=== PATIENT | male | born 1990 | race Caucasian/White ===

== ENCOUNTER 2018-08-16 09:33 | Inpatient (IN) | payer OTHER ==
[~2018-08-16] VITALS: Ht 175.3 cm; Wt 116.6 kg
--- NOTE | 2018-08-16 09:50 | NUR ---
PT TO ER BED 10, WAS REFFERED BY URGENT CARE FOR HIGH BLOOD SUGAR. PT IS C/O URINARY FREQUENCY AND BLURRING OF VISION X 2 WEEKS. STABLE VITALS. VSS. AWAITING MD TOWSNEND.
--- NOTE | 2018-08-16 10:08 | NUR ---
DR BOLAND AT BEDSIDE FOR EVAL.
--- NOTE | 2018-08-16 10:20 | NUR ---
IV LINE STARTED BLOOD DRAWN AND SENT TO LAB.
[2018-08-16 10:30] LABS: BASOPHILS # (AUTO) 0.1 /CMM (0.0-0.2); BASOPHILS % (AUTO) 1.5 % (0.0-2.0); EOSINOPHILS % (AUTO) 1.7 % (0.0-6.0); HEMATOCRIT 50 % (39-51); HEMOGLOBIN 17.5 g/dL (13.5-17.5); LYMPHOCYTES # (AUTO) 3.6 /CMM (0.8-4.8); LYMPHOCYTES % (AUTO) 46.6 % (20.0-44.0); MEAN CORPUSCULAR HGB CONC 35 g/dl (31.0-36.0); MEAN CORPUSCULAR VOLUME 87 fL (80-96); MONOCYTES # (AUTO) 0.6 /CMM (0.1-1.30); MONOCYTES % (AUTO) 7.8 % (2.0-12.0); NEUTROPHILS # (AUTO) 3.3 /CMM (1.8-8.9); NEUTROPHILS % (AUTO) 42.4 % (43.0-81.0); PLATELET COUNT (AUTO) 233 /CMM (150-450); WHITE BLOOD COUNT (AUTO) 7.7 K/uL (4.3-11.0)
[2018-08-16] MEDS ORDERED: ONDANSETRON HCL/PF 4 MG/2 ML VIAL IVP ONE (10:30)
[2018-08-16] MEDS ORDERED: IV NS 0.9% 1,000 ML BAG IV ONE (10:30)
[2018-08-16 10:35] LABS: CALCIUM, SERUM 8.9 mg/dL (8.5-10.1); CREATININE 1.4 mg/dL (0.6-1.3); POTASSIUM 4.1 mmol/L (3.5-5.1)
[2018-08-16 10:41] LABS: ALBUMIN 4.6 g/dL (3.4-5.0); BILIRUBIN,DIRECT 0.1 mg/dL (0.0-0.2); BILIRUBIN,TOTAL 0.8 mg/dL (0.2-1.0); TOTAL PROTEIN, SERUM 8.3 g/dL (6.4-8.2)
[2018-08-16 10:52] LABS: APPEARANCE,URINE Clear (CLEAR); BILIRUBIN,URINE SMALL (NEGATIVE); BLOOD, URINE Moderate Ery/uL (NEGATIVE); COLOR,URINE Yellow (YELLOW); KETONES,URINE >=160 (NEGATIVE); LEUKOCYTE ESTERASE ,URINE Negative (NEGATIVE); NITRITE, URINE Negative (NEGATIVE); PROTEIN,URINE 100 mg/dl (NEGATIVE); UGLUCOSE 500 MG/DL mg/dL (NEGATIVE); UROBILINOGEN,URINE 0.2 EU/dL (0.2)
[2018-08-16 11:06] LABS: BACTERIA,URINE None seen /HPF (None Seen); RBC,URINE 0-2 /HPF (0-2); WBC,URINE 0-2 /HPF (0-3)
[2018-08-16 11:11] LABS: SQUAMOUS EPITHELIAL CELL,UR Rare /HPF (None Seen)
--- NOTE | 2018-08-16 12:05 | NUR ---
CALLED HCP, SPOKE TO [facility] [phone]. WILL CALL BACK FOR TRANSFER INFO. PRIMARY NURSE AWARE.
--- NOTE | 2018-08-16 12:08 | NUR ---
BLOOD SUGAR RE CHECK 337. ERMD AWARE. DIABETIC TRAY PROVIDED.
--- NOTE | 2018-08-16 14:18 | NUR ---
CALLED HCP, SPOKE TO [facility] [phone]. WILL CALL BACK FOR TRANSFER INFO. PRIMARY NURSE AWARE.
--- NOTE | 2018-08-16 14:42 | NUR ---
CALL BACK FROM DR LINDO,[phone],TRYING TO TX PATIENT BUT REQUESTED IF PATIENT CAN HAVE MORE FLUID AND AN INSULIN,DR ANDERSON INFORMED AND AGGREED TO GIVE MORE FLUID BUT NOT INSULIN.
[2018-08-16] MEDS ORDERED: IV LR 1000 ML 1,000 ML IV ONE (15:00)
[2018-08-16 16:40] LABS: ABG OXYGEN SATURATION 19.3 % (92.0-98.5); ABG PCO2 48.4 mmHg (35.0-45.0); ABG PH 7.294 (7.350-7.450); ABG PO2 13.5 mmHg (75.0-100.0); COHb 0.4 % (0.5-1.5); MetHb 1.4 % (0.0-1.5); SITE, ABG LEFT ARM; VENT MODE, BG ROOM AIR
--- NOTE | 2018-08-16 18:47 | NUR ---
REPORT GIVEN TO JCARLOS IBARRA AT ICU. AWAITING TRANSFER TO FLOOR.
[2018-08-16] MEDS ORDERED: MAG HYDROX/AL HYDROX/SIMETH 30 ML UDC PO PRN (19:00)
[2018-08-16] MEDS ORDERED: MAGNESIUM HYDROXIDE 30 ML UDC PO PRN (19:00)
[2018-08-16] MEDS ORDERED: INSULIN REGULAR, HUMAN 100 UNIT in IV NS 0.9% 99 ML IV PRN ×2 (19:00)
[2018-08-16] MEDS ORDERED: ZOLPIDEM TARTRATE 5 MG TABLET PO PRN (19:00)
[2018-08-16] MEDS ORDERED: ACETAMINOPHEN 325 MG TABLET PO PRN (19:00)
[2018-08-16] MEDS ORDERED: Z GUARD REMEDY 2 OZ OINT TP PRN (19:00)
[2018-08-16] MEDS ORDERED: ONDANSETRON HCL/PF 4 MG/2 ML VIAL IVP PRN (19:00)
[2018-08-16] MEDS ORDERED: HYDROCODONE/APAP 5/325MG 1 EACH TABLET PO PRN (19:00)
[2018-08-16 19:24] LABS: CALCIUM, SERUM 8.4 mg/dL (8.5-10.1); CREATININE 1.2 mg/dL (0.6-1.3); POTASSIUM 3.8 mmol/L (3.5-5.1)
[2018-08-16 19:30] VITALS: BP 133/88
--- NOTE | 2018-08-16 19:30 | NUR ---
RECEIVED PT IN NO ACUTE DISTRESS IN [facility]. PT AMBULATED TO BED WITH A STEADY GAIT. PT IS A/O X 4 AND ABLE TO MAKE NEEDS KNOWN. PT IS ON RA AND TOLERATING WELL WITH O2 SAT @ 98%. PT NOT C/O ANY SOB, DIFFICULTY BREATHING OR PAIN AT THIS TIME. PT PLACED ON TELE WITH SR ON THE MONITOR. PT HAS LEFT AC 20G THAT IS CLEAN DRY INTACT AND PATENT WITH SALINE FLUSH. BED IN LOW LOCK POSITION WITH RIALS UP X 2 CALL LIGHT WITHIN REACH AND ALL SAFETY MEASURES ENSURED AND CARRIED OUT. WILL CONTINUE TO MONITOR.
[2018-08-16] MEDS: IV NS 0.9% 1,000 ML IV SCH (19:35)
[2018-08-16] MEDS: BLOOD SUGAR DIAGNOSTIC 1 EACH STRIP IN SCH ×4 (19:55→23:03)
[2018-08-16 20:00] VITALS: BP 134/76
[2018-08-16 21:00] VITALS: BP 138/81
[2018-08-16 22:00] VITALS: BP 138/79
[2018-08-16 23:00] VITALS: BP 128/56
[2018-08-17] VITALS (35 sets, daily range): BP systolic 111–157; BP diastolic 52–97
--- NOTE | 2018-08-17 | NUR ---
NOTIFIED DR JENKINS THAT PT POTASSIUM LEVEL IS 3.2 AND GIVEN ORDERS FOR 40 MEQ POTASSIUM ONE TIME. READBACK ORDERS PERFORMED AND CARRIED OUT.
[2018-08-17] MEDS: BLOOD SUGAR DIAGNOSTIC 1 EACH STRIP IN SCH ×14 (00:06→21:36)
[2018-08-17 00:35] LABS: CALCIUM, SERUM 8.1 mg/dL (8.5-10.1); CREATININE 1.2 mg/dL (0.6-1.3); POTASSIUM 3.2 mmol/L (3.5-5.1)
[2018-08-17] MEDS: IV NS 0.9% 1,000 ML IV SCH ×2 (01:55→10:11)
[2018-08-17] MEDS ORDERED: POTASSIUM CHLORIDE 20 MEQ TAB.PRT.SR PO ONE ×2 (02:00→07:00)
[2018-08-17 04:48] LABS: BASOPHILS # (AUTO) 0.1 /CMM (0.0-0.2); BASOPHILS % (AUTO) 1.1 % (0.0-2.0); EOSINOPHILS % (AUTO) 1.7 % (0.0-6.0); HEMATOCRIT 43 % (39-51); HEMOGLOBIN 15.2 g/dL (13.5-17.5); LYMPHOCYTES # (AUTO) 3.5 /CMM (0.8-4.8); LYMPHOCYTES % (AUTO) 54.8 % (20.0-44.0); MEAN CORPUSCULAR HGB CONC 35 g/dl (31.0-36.0); MEAN CORPUSCULAR VOLUME 86 fL (80-96); MONOCYTES # (AUTO) 0.5 /CMM (0.1-1.30); MONOCYTES % (AUTO) 7.1 % (2.0-12.0); NEUTROPHILS # (AUTO) 2.2 /CMM (1.8-8.9); NEUTROPHILS % (AUTO) 35.3 % (43.0-81.0); PLATELET COUNT (AUTO) 204 /CMM (150-450); RED BLOOD CELL COUNT(AUTO) 4.96 MIL/uL (4.5-6.0); WHITE BLOOD COUNT (AUTO) 6.3 K/uL (4.3-11.0)
[2018-08-17 05:10] LABS: ALBUMIN 3.8 g/dL (3.4-5.0); BILIRUBIN,DIRECT 0.1 mg/dL (0.0-0.2); BILIRUBIN,TOTAL 0.7 mg/dL (0.2-1.0); CALCIUM, SERUM 8.2 mg/dL (8.5-10.1); CREATININE 1.2 mg/dL (0.6-1.3); MAGNESIUM 1.7 mg/dL (1.8-2.4); PHOSPHORUS 3.7 mg/dL (2.5-4.9); POTASSIUM 3.6 mmol/L (3.5-5.1); TOTAL PROTEIN, SERUM 6.7 g/dL (6.4-8.2)
--- NOTE | 2018-08-17 06:00 | NUR ---
NOTIFIED DR JENKINS THAT PT HAS POTASSIUM LEVEL OF 3.6 AND MAGNESIUM LEVEL OF 1.7 WITH ORDERS TO GIVE 40 MEQ POTASSIUM PO ONE TIME AND 1GM OF MAGNESIUM IV. READBACK ORDERS PERFORMED AND CARRIED OUT.
--- NOTE | 2018-08-17 06:33 | NUR ---
PT REMAINS IN NO ACUTE DISTRESS IN BED. PT DID NOT HAVE ANY SIGNIFICANT CHANGE IN CONDITION DURING SHIFT. PT TOLERATING INSULIN DRIP WELL. ALL NEEDS MET, ALL ORDERS CARRIED OUT. WILL ENDORSE CARE TO AM RN FOR CONTINUITY OF CARE.
[2018-08-17] MEDS ORDERED: Magnesium 1GM/D5W 100ML PREMIX 100 ML IV SCH (07:00)
--- NOTE | 2018-08-17 08:38 | NUR ---
received pt from third shift lieutenant, a/o x4, SR, RA, on insulin drip at 4unit/hr, tolerates diet, good urine output, v/s stable, no pain, pt turns and repositions by himself.
[2018-08-17] MEDS ORDERED: *INSULIN REGULAR(HUMULIN R)HUM 100 UNIT/ML VIAL SQ PRN (10:30)
[2018-08-17] MEDS ORDERED: DEXTROSE 50%-WATER 50 ML DISP.SYRIN IV PRN (10:30)
[2018-08-17] MEDS: INSULIN GLARGINE, 100 UNIT/ML CARTRIDGE SQ SCH ×2 (12:13→21:44)
[2018-08-17] MEDS: INSULIN REGULAR, HUMAN 100 UNIT/ML 3 ML VIAL SQ PRN ×2 (12:16→21:46)
--- NOTE | 2018-08-17 12:46 | NUR ---
pt is resting in the bed, off of insulin drip, v/s stable, no pain.
--- NOTE | 2018-08-17 16:04 | NUR ---
pt is resting in the bed, a/o x4, SR, RA, v/s stable, no pain, girlfriend at the bedside.
[2018-08-17] MEDS: GEMFIBROZIL 600 MG TABLET PO SCH (21:30)
[2018-08-18] VITALS (10 sets, daily range): BP systolic 117–149; BP diastolic 52–94
[2018-08-18 04:53] LABS: BASOPHILS # (AUTO) 0.1 /CMM (0.0-0.2); BASOPHILS % (AUTO) 1.1 % (0.0-2.0); EOSINOPHILS % (AUTO) 1.6 % (0.0-6.0); HEMATOCRIT 44 % (39-51); HEMOGLOBIN 15.6 g/dL (13.5-17.5); LYMPHOCYTES % (AUTO) 51.7 % (20.0-44.0); MEAN CORPUSCULAR HGB CONC 35 g/dl (31.0-36.0); MEAN CORPUSCULAR VOLUME 86 fL (80-96); MONOCYTES # (AUTO) 0.5 /CMM (0.1-1.30); MONOCYTES % (AUTO) 6.8 % (2.0-12.0); NEUTROPHILS % (AUTO) 38.8 % (43.0-81.0); PLATELET COUNT (AUTO) 205 /CMM (150-450); RED BLOOD CELL COUNT(AUTO) 5.13 MIL/uL (4.5-6.0); WHITE BLOOD COUNT (AUTO) 7.7 K/uL (4.3-11.0)
[2018-08-18 05:15] LABS: CALCIUM, SERUM 8.4 mg/dL (8.5-10.1); MAGNESIUM 1.7 mg/dL (1.8-2.4); PHOSPHORUS 3.3 mg/dL (2.5-4.9); POTASSIUM 3.1 mmol/L (3.5-5.1)
[2018-08-18 05:31] LABS: ALBUMIN 3.8 g/dL (3.4-5.0); BILIRUBIN,DIRECT 0.1 mg/dL (0.0-0.2); BILIRUBIN,TOTAL 0.8 mg/dL (0.2-1.0); TOTAL PROTEIN, SERUM 6.8 g/dL (6.4-8.2)
--- NOTE | 2018-08-18 05:40 | NUR ---
TX TO RELL RM 107 BY W/C WITH BELONGINGS. RM INFO AND PH. # GIVEN TO GIRLFRIEND.
--- NOTE | 2018-08-18 06:15 | NUR ---
TD RN NOTE: PT WAS TRANSFERRED FROM ICU VIA WHEELCHAIR. PT IS ALERT AND ORIENTED X4. ABLE TO MAKE NEEDS KNOWN. NO APPARENT DISTRESS NOTED. NO COMPLAINTS OF PAIN OR DISCOMFORT AT THIS TIME. ON ROOM AIR, NO SOB NOTED. SINUS RHYTHM ON TELE MONITOR HR 68BPM. PT IS AMBULATORY. NO SIGNS/SYMPTOMS OF HYPO/HYPERGLYCEMIA NOTED. IV ON LEFT ANTECUBITAL #30 INTACT AND PATENT, FLUSHING WELL. SKIN IS INTACT. BELONGINGS LIST SIGNED AND ACCOUNTED FOR. KEPT CLEAN, DRY AND COMFORTABLE. CALL LIGHT PLACED WITHIN REACH. SAFETY AND FALL PRECAUTIONS OBSERVED AND MAINTAINED. WILL ENDORSE TO DAY SHIFT RN FOR CONTINUITY OF CARE.
--- NOTE | 2018-08-18 07:30 | NUR ---
RN NOTE: RECEIVED PATIENT IN BED, ASLEEP BUT AROUSABLE WITH VERBAL CUES AND TACTILE STIMULI. RESPIRATION EVEN AND UNLABORED SATURATING 96% IN ROOM AIR. DENIED ANY PAIN. HOB ELEVATED. BED IN LOWEST POSITION AND LOCKED AT ALL TIMES. (L) AC IV SITE NOTED PATENT AND INTACT. CALL LIGHT WITHIN REACH. NEEDS ANTICIPATED.
[2018-08-18] MEDS: BLOOD SUGAR DIAGNOSTIC 1 EACH STRIP IN SCH ×3 (07:43→17:53)
[2018-08-18] MEDS: INSULIN REGULAR, HUMAN 100 UNIT/ML 3 ML VIAL SQ PRN ×3 (08:55→17:54)
[2018-08-18] MEDS: GEMFIBROZIL 600 MG TABLET PO SCH (08:56)
[2018-08-18] MEDS: Magnesium 1GM/D5W 100ML PREMIX 100 ML IV SCH ×2 (10:08→11:31)
[2018-08-18] MEDS: POTASSIUM CHLORIDE 20 MEQ TAB.PRT.SR PO SCH ×2 (10:08→11:31)
--- NOTE | 2018-08-18 13:13 | NUR ---
RN NOTE: INFORMED DR. JOHNSON REGARDING THE PATIENT'S REQUEST TO GET SOMETHING T HELP HIM MOVE HIS BOWEL. CLARIFIED WITH MD THE ORDER FOR THE MILK OF MAGNESIA. ORDER CLARIFIED, NOTED AND CARRIED OUT. PATIENT MADE AWARE.
[2018-08-18 13:29] LABS: ABG BASE EXCESS -3.8 mmol/L; ABG OXYGEN SATURATION 98.3 % (92.0-98.5); ABG PH 7.422 (7.350-7.450); ABG PO2 130.2 mmHg (75.0-100.0); COHb 0.8 % (0.5-1.5); MetHb 0.6 % (0.0-1.5); O2Hb 96.9 % (94.0-97.0); SITE, ABG Right Radial; VENT MODE, BG RA
[2018-08-18] MEDS ORDERED: MAGNESIUM HYDROXIDE 30 ML UDC PO PRN (13:30)
[2018-08-18 13:37] LABS: CALCIUM, SERUM 9.2 mg/dL (8.5-10.1); CREATININE 1.1 mg/dL (0.6-1.3); POTASSIUM 4.5 mmol/L (3.5-5.1)
--- NOTE | 2018-08-18 15:16 | NUR ---
RN NOTE: RECEIVED ORDER FROM DR. JOHNSON TO PUT THE PATIENT BACK TO THE L[facility]ED [facility] IN PREPARATION FOR HIS TRANSFER TO ANOTHER HOSPITAL. PATIENT MADE AWARE. PER HEATER OPERATOR, STILL PENDING WITH THE HOSPITAL TRANSFER DUE TO THE PATIENT'S INSURANCE, AND CM WILL INFORM THE NURSE ONCE AN ACCEPTANCE FROM THE OTHER HOSPITAL WAS CONFIRMED. EXIT CARE WAS DONE.
[2018-08-18] MEDS ORDERED: Insulin Glargine,Hum SQ (15:28)
[2018-08-18] MEDS ORDERED: GEMF600T PO (15:28)
[2018-08-18] MEDS ORDERED: HYDR-3972 PO (15:28)
[2018-08-18] MEDS ORDERED: INSU100V28 SQ (15:28)
[2018-08-18] MEDS ORDERED: Blood Sugar Diagnostic IN (15:28)
[2018-08-18] MEDS ORDERED: *INS REG3 SQ (15:28)
[2018-08-18] MEDS ORDERED: DEXT50DI8 IV (15:28)
[2018-08-18] MEDS ORDERED: ONDA4VIA23 IVP (15:28)
[2018-08-18] MEDS ORDERED: Sodium Chloride 154 MEQ in IV 10% DEXTROSE 1,000 ML IV SCH (15:30)
--- NOTE | 2018-08-18 15:30 | NUR ---
RN NOTE: RECEIVED AN UPDATE FROM STACEY ZAVALA CM AND ACCORDING TO HER THE PATIENT WAS ACCEPTED AT [facility], BUT PENDING WITH THE BED NUMBER. PER RANDAL, SHE WILL CALL BACK ONCE ALL THE DETAILS FOR TRANSFER WAS MADE. PATIENT AND FAMILY MADE AWARE.
--- NOTE | 2018-08-18 16:00 | NUR ---
RN NOTE: RECEIVED A PHONE CALL FROM SALLY REFINING MACHINE OPERATOR AND SHE CONFIRMED THAT THE PATIENT WAS ACCEPTED AT [facility] AND THE RECEIVING MD WAS DR. BONILLA AND PATIENT WILL GO TO ROOM 3G. PER REFINING MACHINE OPERATOR, CALL FOR REPORT AFTER 7 PM PER THE REFINING MACHINE OPERATOR ON THE OTHER HOSPITAL. DETAILS OF THE TRANSFER WILL BE ENDORSE TO ENDOSCOPY SPECIALTY TECHNICIAN NURSE.
--- NOTE | 2018-08-18 19:17 | NUR ---
RN NOTE: BEDSIDE REPORT GIVEN TO PM SHIFT NURSE FOR CONTINUITY OF CARE. PATIENT REMAINED ON STABLE CONDITION REMAINED AWAKE, ALERT AND ORIENTED X4. FIANCE PRESENT AT THE BEDSIDE. (L) AC IV SITE REMAINED INTACT AND PATENT. PAPERWORK WAS DONE FOR TRANSFER. PM SHIFT NURSE WAS ENDORSED TO GIVE REPORT TO [facility] FOR THE REPORT AFTER 7:30PM.
--- NOTE | 2018-08-18 19:46 | NUR ---
DESKTOP TECHNICIAN NOTE: PT WAS DISCHARGED TO [facility] IN STABLE CONDITION. REPORT GIVEN TO STACEY ELLIOTT. PATIENT IS ALERT AND ORIENTED X4. FIANCE AT BEDSIDE. NO APPARENT DISTRESS NOTED. DENIES PAIN AND DISCOMFORT AT THIS TIME. BREATHING EVEN AND UNLABORED WITH NORMAL RESPIRATIONS. VITAL SIGNS STABLE. EXIT CARE PROVIDED. BELONGINGS LIST DINE AND ACCOUNTED FOR. DISCHARGE INSTRUCTIONS GIVEN AND PROVIDED.
== END 2018-08-18 19:30 | DRG 637 ==
LOC: ER 09:37 → ICU 19:10 → TELE-TD 08-18 05:35 → MEDSG1 08-18 08:30 → TELE1 08-18 15:13
PROVIDERS: ADMIT Student in an Organized Health Care Education/Training Program; ATTEND Student in an Organized Health Care Education/Training Program
DX: E11.10 Type 2 diabetes mellitus with ketoacidosis without coma (principal); N17.0 Acute kidney failure with tubular necrosis; E87.1 Hypo-osmolality and hyponatremia; E66.9 Obesity, unspecified; R74.0 Nonspecific elevation of levels of transaminase and lactic acid dehydrogenase [LDH]; E78.1 Pure hyperglyceridemia; Z68.38 Body mass index [BMI] 38.0-38.9, adult; Z83.3 Family history of diabetes mellitus; E87.6 Hypokalemia
CPT/HCPCS: 36415; 36600; 76700-TC; 80048-TC; 80061-TC; 80076-TC; 81000-TC; 82962-TC; 83690-TC; 83735-TC; 84100-TC; 85025-TC; 87081-TC; G0378; J1815; J3475; J3490; J7030; J7120